=== PATIENT | female | born 1995 | race Caucasian/White ===

== ENCOUNTER 2022-08-20 16:26 | Inpatient (IN) | payer BC ==
[2022-08-20] MEDS ORDERED: Nalbuphine HCl 10 MG/ 1ML Amp IVPUSH PRN (17:27)
[2022-08-20] MEDS ORDERED: Lidocaine 1% 50 ML MDV INJECT ONE (17:27)
[2022-08-20] MEDS ORDERED: Sodium Chloride 0.9% 10 ML Syringe FLUSH PRN (17:27)
[2022-08-20] MEDS ORDERED: Calcium Carbonate 500 MG Tab.Chew PO PRN (17:27)
[2022-08-20] MEDS ORDERED: Ondansetron 4 MG/2 ML SDV IVPUSH PRN (17:27)
[2022-08-20] MEDS ORDERED: Ampicillin 2 GM in Sodium Chloride 0.9% 100 ML IV ONE (17:29)
[2022-08-20] MEDS ORDERED: Oxytocin/Lactated Ringers 10 UNIT/1,000 ML BAG IV SCH (17:30)
[2022-08-20] MEDS ORDERED: Lactated Ringers 1,000 ML IV SCH (17:30)
[2022-08-20] MEDS ORDERED: Sodium Chloride 0.9% 10 ML Syringe FLUSH SCH (21:00)
[2022-08-20] MEDS: Ampicillin 1 GM in Sodium Chloride 0.9% 100 ML IV SCH (21:31)
[2022-08-21] MEDS ORDERED: Lidocaine 1% 50 ML MDV ONE (00:59)
[2022-08-21] MEDS ORDERED: Witch Hazel Medicated Pads 40/Jar TOP PRN (02:03)
[2022-08-21] MEDS ORDERED: Docusate Sodium 100 MG Cap PO PRN (02:03)
[2022-08-21] MEDS ORDERED: Benzocaine/Menthol 20%-0.5% Spray 78 GM Cannister TOP PRN (02:03)
[2022-08-21] MEDS ORDERED: Ibuprofen 600 MG Tab PO PRN (02:03)
[2022-08-21] MEDS ORDERED: Acetaminophen 325 MG Tab PO PRN (02:03)
[2022-08-21] MEDS ORDERED: Prenatal Multivitamin with Calcium/Folic Acid/Iron Tab PO SCH (09:00)
[2022-08-22] MEDS: Ampicillin 1 GM in Sodium Chloride 0.9% 100 ML IV SCH (03:18)
== END 2022-08-22 14:30 | disposition home or self-care (01) | DRG 560 ==
LOC: JD.OBCHECK 16:26 → JD.OB 16:35 → JD.OBCHECK 17:26 → JD.OB 17:27 → OBSVTOIN 08-21 01:05 → JD.OB 08-21 01:06
PROVIDERS: ADMIT Obstetrics & Gynecology; ATTEND Obstetrics & Gynecology
PROC: 10E0XZZ Delivery of Products of Conception, External Approach (ICD-10-PCS; principal; 2022-08-21)
PROC: 10907ZC Drainage of Amniotic Fluid, Therapeutic from Products of Conception, Via Natural or Artificial Opening (ICD-10-PCS; 2022-08-21)
PROC: 0HQ9XZZ Repair Perineum Skin, External Approach (ICD-10-PCS; 2022-08-21)
DX: O99.824 Streptococcus B carrier state complicating childbirth (principal); Z3A.38 38 weeks gestation of pregnancy; Z37.0 Single live birth; O70.0 First degree perineal laceration during delivery
CPT/HCPCS: 36415; 59025; 59409; 82565; 83615; 84450; 84460; 84520; 84550; 85025; 86592; 86850; 86900; 86901; A9270-GY; J0290; J2001; J2300; J7120